=== PATIENT | male | born 2000 | race Hispanic/Latino ===

== ENCOUNTER 2021-11-08 00:09 | Emergency (ER) | payer MEDICAID ==
[~2021-11-08] VITALS: Ht 175.3 cm; Wt 70.3 kg
[2021-11-08 00:19] VITALS: BP 116/71
[2021-11-08] MEDS ORDERED: IBUPROFEN 600 MG TABLET PO ONE (00:30)
== END 2021-11-08 00:48 | disposition home or self-care (01) ==
LOC: EDH 00:09
DX: M25.512 Pain in left shoulder (principal); Z79.1 Long term (current) use of non-steroidal anti-inflammatories (NSAID)
CPT/HCPCS: 99282